=== PATIENT | female | born 1980 | race Caucasian/White ===

== ENCOUNTER 2016-09-19 16:03 | Observation (INO) | payer BC ==
[~2016-09-19] VITALS: Ht 170.2 cm; Wt 48.1 kg
[~2016-09-19 16:03] MED LIST: NAPROSYN500 MG PO; PHENERGAN-CODE120 ML PO; ULTRAM50 MG PO; ZITHROMAX250 MG PO
[2016-09-19 17:21] LABS: HEMATOCRIT 45.2 % (36.0-46.0); MCH 29.5 PG (29.0-34.0); MCV 89.5 FL (83-99); RBC DIS.WIDTH-CV 12.9 % (11.8-14.6); RBC DIS.WIDTH-SD 42.3 % (39-53); RED BLOOD COUNT 5.05 M/uL (3.80-5.20); WHITE BLOOD COUNT 7.1 K/uL (4.1-10.2)
[2016-09-19 17:35] LABS: CHLORIDE 106 mEq/L (99-109); POTASSIUM 3.8 mEq/L (3.7-5.4); SODIUM 139 mEq/L (136-147)
[2016-09-19 17:37] LABS: GLUCOSE 92 mg/dL (70-99)
[2016-09-19 17:38] LABS: ANION GAP 7 MEQ/L (2-14)
[2016-09-19 17:40] LABS: GFR ESTIMATE (CALCULATED) > 59 mL/min/
[2016-09-19 17:41] LABS: UREA NITROGEN (BUN) 6 mg/dL (9-23)
[2016-09-19 17:44] LABS: TROP-I INTERPRETATION NEGATIVE; TROPONIN-I < 0.01 ng/mL (0.0-0.30)
[2016-09-19 17:59] LABS: MEAN PLAT.VOLUME 10.3 uM^3 (9.5-12.4); PLAT.SUFFICIENCY ADEQUATE; PLATELET COUNT 319 K/uL (156-360)
[2016-09-19 21:56] VITALS: BP 146/86
[2016-09-19 23:58] LABS: TROP-I INTERPRETATION NEGATIVE; TROPONIN-I < 0.01 ng/mL (0.0-0.30)
[2016-09-20 01:22] VITALS: BP 101/57
[2016-09-20 04:15] VITALS: BP 130/78
[2016-09-20 05:58] LABS: TROP-I INTERPRETATION NEGATIVE; TROPONIN-I < 0.01 ng/mL (0.0-0.30)
[2016-09-20 08:10] VITALS: BP 125/61
[2016-09-20 11:53] VITALS: BP 113/56
[2016-09-20] MEDS ORDERED: ASPIR-LOW81 MG PO (14:13)
== END 2016-09-20 15:15 | disposition home or self-care (01) ==
LOC: EME 16:03 → EDOF 20:10 → ENRESERV 20:14 → 5WEST 21:46
PROVIDERS: Hospitalist
DX: R07.9 Chest pain, unspecified (principal); R06.02 Shortness of breath; I70.8 Atherosclerosis of other arteries; R94.31 Abnormal electrocardiogram [ECG] [EKG]; I10 Essential (primary) hypertension; Z88.0 Allergy status to penicillin; Z84.1 Family history of disorders of kidney and ureter; Z82.8 Family history of other disabilities and chronic diseases leading to disablement, not elsewhere classified
CPT/HCPCS: 70450; 70498; 71020; 71275; 80048; 84484; 84702; 85027; 93005; 99281; 99285; G0378; J7030

== ENCOUNTER 2016-10-30 10:01 | Day surgery (SDC) | payer BC ==
[~2016-10-30] VITALS: Ht 162.6 cm; Wt 46.7 kg
[~2016-10-30 10:01] MED LIST changes: +ADVAIR HFA120 INHAL1 IH; +ASPIR-LOW81 MG PO; +FLINTSTONES WIT18 MG PO; +LIPITOR40 MG PO; +OMEPRAZOLE20 MG PO; +PROAIR HFA8.5 GM IH
== END 2016-10-30 15:55 | disposition home or self-care (01) ==
LOC: CATH 10:01 → OPR 12:30 → CATH 15:55
PROC: B2111ZZ Fluoroscopy of Multiple Coronary Arteries using Low Osmolar Contrast (ICD-10-PCS; principal; 2016-10-30)
PROC: 4A023N7 Measurement of Cardiac Sampling and Pressure, Left Heart, Percutaneous Approach (ICD-10-PCS; principal; 2016-10-30)
PROC: B2151ZZ Fluoroscopy of Left Heart using Low Osmolar Contrast (ICD-10-PCS; principal; 2016-10-30)
DX: I34.0 Nonrheumatic mitral (valve) insufficiency (principal); I10 Essential (primary) hypertension; R07.9 Chest pain, unspecified; Z82.49 Family history of ischemic heart disease and other diseases of the circulatory system; Z79.82 Long term (current) use of aspirin; F17.200 Nicotine dependence, unspecified, uncomplicated
CPT/HCPCS: C1769; C1887; J1644; J2250; J3010